=== PATIENT | female | born 1955 | race Caucasian/White ===

== ENCOUNTER 2024-08-10 12:35 | Emergency (ER) | payer MEDICARE ==
[2024-08-10 12:50] VITALS: RESP 18
--- NOTE | 2024-08-10 12:53 | ED ---
Fall HPI - General Chief Complaint: Fall Stated Complaint: Fall- R wrist injury Time Seen by Provider: 08/10/24 12:44 Source: patient, RN notes reviewed Mode of arrival: ambulatory Limitations: no limitations - History of Present Illness Initial Comments: This is a 69-year-old female who presents to the emergency department for a fall. Patient was standing in the back of a pickup truck and accidentally fell out of it, landing on the concrete. States that she hit her head and injured the right wrist. Denies any loss of consciousness. Not taking any blood thinners. There is a small laceration to the right forehead. Unsure when her last tetanus vaccine was. She is still able to move the wrist but states that it is painful. Denies sustaining any additional injuries. She took 2 extra strength Tylenol prior to arrival. MD Complaint: fall - Related Data Previous Rx's Medication Instructions Recorded HYDROcodone/APAP 7.5-325MG [[place] 1 tab PO Q6HR PRN 3 Days #12 tab 08/10/24 7.5-325] Ibuprofen [Motrin] 800 mg PO Q8H PRN #30 tab 08/10/24 Allergies Allergy/AdvReac Type Severity Reaction Status Date / Time No Known Allergies Allergy Verified 08/10/24 12:39 Review of Systems ROS Statement: Those systems with pertinent positive or pertinent negative responses have been documented in the HPI. ROS Other: All systems not noted in ROS Statement are negative. Past Medical History Past Medical History: No Reported History Past Surgical History: Breast Surgery, Orthopedic Surgery, Tonsillectomy Additional Past Surgical History / Comment(s): R mastectomy, Jaw surgery Past Psychological History: Anxiety Smoking Status: Former smoker Past Alcohol Use History: None Reported Past Drug Use History: None Reported General Exam Limitations: no limitations General appearance: alert, in no apparent distress Head exam: Present: other (3 cm laceration to the right side of the forehead. Ecchymosis and swelling to the right side of the forehead.) Eye exam: Present: normal appearance, PERRL, EOMI. Absent: scleral icterus, conjunctival injection, periorbital swelling Respiratory exam: Present: normal lung sounds bilaterally. Absent: respiratory distress, wheezes, rales, rhonchi, stridor Cardiovascular Exam: Present: regular rate, normal rhythm, normal heart sounds. Absent: systolic murmur, diastolic murmur, rubs, gallop, clicks Extremities exam: Present: other (Swelling and tenderness to the dorsal aspect of the right wrist. Range of motion limited by pain. 2+ radial pulses) Neurological exam: Present: alert, oriented X3, CN II-XII intact Psychiatric exam: Present: normal affect, normal mood Course Vital Signs 08/10/24 08/10/24 12:39 14:28 Temperature 97.5 F L 97.7 F Pulse Rate 76 74 Respiratory 18 18 Rate Blood Pressure 137/69 136/77 O2 Sat by Pulse 97 98 Oximetry Procedures - Laceration Laceration #1 Consent Obtained: verbal consent Indication: laceration Site: face Size (cm): 3 Description: linear Depth: simple, single layer Type of Sutures: other (Dermabond) - Orthopedic Splinting/Casting Injury #1 Side: right Upper Extremity Injury Location: wrist Upper Extremity Immobilizer: volar splint, fiberglass cast Medical Decision Making - Medical Decision Making This is a 69 year old female who presents to the emergency department for a fall. Was pt. sent in by a medical professional or institution? @ -No Did you speak to anyone other than the patient for history? @ -No Did you review nursing and triage notes? @ -Yes, and I agree, it is accurate with regards to the patient's symptoms. Were old charts reviewed? @ -No Differential Diagnosis? @ -Differential Diagnosis Head Injury: Contusion, hematoma, intracranial hemorrhage, skull fracture, whiplash, concussion, this is not meant to be an all-inclusive list. EKG interpreted by me (3pts min.)? @ -Not obtained X-rays interpreted by me (1pt min.)? @ -X-ray of the right wrist obtained. My interpretation identifies a distal radius fracture. CT interpreted by me (1pt min.)? @ -Computed tomography scan of the brain and c-spine obtained. My interpretation identifies no evidence of an acute intracranial hemorrhage, skull fracture, or cervical spine fracture. CT scan of the facial bones obtained. My interpretation identifies no facial fractures. U/S interpreted by me (1pt. min.)? @ -Not obtained What testing was considered but not performed? (CT, X-rays, U/S, labs)? Why? @ -None What meds were considered but not given? Why? @ -None Did you discuss the management of the patient with other professionals? @ -No Did you reconcile home meds? @ -No Was smoking cessation discussed for >3mins.? @ -No Was critical care preformed (if so, how long)? @ -No Were there social determinants of health that impacted care today? How? (Homelessness, low income, unemployed, alcoholism, drug addiction, transportation, low edu. Level, literacy, decrease access to med. care, detention, rehab)? @ -No Was there de-escalation of care discussed even if they declined? (Discuss DNR or withdrawal of care, Hospice)? @ -No What co-morbidities impacted this encounter? (DM, HTN, Smoking, COPD, CAD, Cancer, CVA, Hep., AIDS, mental health diagnosis, sleep apnea, morbid obesity)? @ -None Was patient admitted / discharged? @ -Discharged. CT scan of the brain/C-spine and facial bones obtained revealing no acute intracranial process or signs of any facial or cervical spine fractures. X-ray of the right hand and wrist demonstrates a minimally impacted, comminuted fracture of the distal radial metaphysis as well as a nondisplaced fracture involving the tip of the ulnar styloid process. Volar splint was applied. Tetanus vaccine was updated. LET was applied to the laceration on her forehead to help control the bleeding. Dermabond was then used to close the wound. Prescription for ibuprofen and [place] provided. She was also given information for follow-up with orthopedics and advised to contact them for a follow-up appointment. Patient discharged home in stable condition. Case discussed with ED attending Dr. Alvares. Return precautions reviewed in depth, the patient is instructed to return to the emergency department with any new, worsening, or concerning symptoms. Patient verbalized understanding. Undiagnosed new problem with uncertain prognosis? @ -None Drug Therapy requiring intensive monitoring for toxicity (Heparin, Nitro, Insulin, Cardizem)? @ -None Were any procedures done? @ -Laceration repair with Dermabond, right volar splint application Diagnosis/symptom? @ -Fall, right distal radius and ulnar fracture, head injury, laceration Acute, or Chronic, or Acute on Chronic? @ -Acute Uncomplicated (without systemic symptoms) or Complicated (systemic symptoms)? @ -Uncomplicated Side effects of treatment? @ -None Exacerbation, Progression, or Severe Exacerbation] @ -Not applicable Poses a threat to life or bodily function? @ -Will limit use of the right arm for the mean time. - Radiology Data Radiology results: report reviewed, image reviewed Disposition Clinical Impression: Fall, Head injury, Laceration, Closed fracture of right distal radius and ulna Disposition: HOME SELF-CARE Instructions (If sedation given, give patient instructions): Wrist Fracture in Adults (ED), Fall Prevention for Older Adults (ED), Splint Care (ED), Skin Adhesive Care (ED) Additional Instructions: Return to the emergency department with any new, worsening, or concerning symptoms. Alternate with ibuprofen and Tylenol as needed for pain relief. Take the [place] sparingly when your pain is the most severe and be aware that it may make you drowsy. Contact orthopedics as listed below this evening or tomorrow morning. Let them know that you were seen in the emergency department and found to have a fracture of your right radius and ulna. They will schedule you for a follow-up appointment. Keep the wound on your forehead dry, do not apply topical medications, and do not rub, scratch, or pick at the wound. The adhesive will naturally fall off within 5-10 days. Prescriptions: Ibuprofen [Motrin] 800 mg PO Q8H PRN #30 tab PRN Reason: Pain HYDROcodone/APAP 7.5-325MG [[place] 7.5-325] 1 tab PO Q6HR PRN 3 Days #12 tab PRN Reason: Pain Is patient prescribed a controlled substance at d/c from ED?: Yes When asked, does pt state using other controlled substances?: No If prescribed controlled substance>3 days was MAPS reviewed?: Prescribed <3 Days Referrals: Kristopher Viveros DO [Primary Care Provider] - 1-2 days Migue Vaughn MD [STAFF PHYSICIAN] - 1-2 days Time of Disposition: 14:18
[2024-08-10] MEDS: TOPICAL SKIN ADHESIVE 1 EACH AMP TOPICAL ONE (13:27)
[2024-08-10] MEDS: LIDOCAINE/EPINEPHR/TETRACAINE 5 ML BOTTLE TOPICAL ONE (13:27)
[2024-08-10] MEDS: DIPH,PERTUS(ACELL)TETVAC-LF 0.5 ML VIAL IM ONE (13:28)
--- NOTE | 2024-08-10 13:30 | CT ---
EXAMINATION TYPE: CT brain cspine wo con, CT facial bones wo con CT DLP: 1061.9 mGycm, Automated exposure control for dose reduction was used. DATE OF EXAM: 08/10/2024 1:20 PM COMPARISON: None. CLINICAL INDICATION:Female, 69 years old with history of Fall, head injury; Fall, head injury, lac ab ove rt eye. Denies LOC. TECHNIQUE: Brain: Multiple axial CT images of the brain were obtained without IV contrast. Cspine: Axial CT images from the skull base to the inferior aspect of T2 we obtained without intraven ous contrast. Coronal and sagittal reformatted images were also reviewed. Facial bones; axial CT images of the facial bones were obtained without contrast and soft tissue and bone windows. Coronal and sagittal reformatted images were also reviewed. FINDINGS: Brain: Extra-axial spaces: No abnormal extra-axial fluid collections. Ventricular system: Within normal limits Cerebral parenchyma: No acute intraparenchymal hemorrhage or mass effect. The ortiz-white junction is well differentiated. Cerebellum: Unremarkable. Mass effect: No evidence of midline shift. Intracranial vasculature: unremarkable Soft tissues: Normal. Calvarium: No depressed skull fracture. Paranasal sinuses and mastoid air cells: Clear. Visualized orbits: Orbital contents are intact. Cervical spine: Fracture: None. Osseous structures: Multilevel degenerative disc disease changes with endplate spurring and disc spac e narrowing with osteophytosis. Vertebral alignment: Within normal limits. Spinal canal/Neural Foramina: Disc bulges at C3-C4, C4-C5, C5-C6, and C6-C7 with at least mild spinal canal stenosis. Facet joint uncovertebral joint arthropathy scattered throughout the cervical spine with varying degrees of neural foraminal stenosis. Neck soft tissues: Prevertebral soft tissues are within normal limits. Other: The airway is patent. Scattered regions of air trapping within the lungs. Few punctate calcifi ed granulomas within the right upper lobe posteriorly. Right axillary surgical clips identified. Facial Bones: There is no evidence of fracture, subluxation, dislocation. Small right congregation soft tissue contusion. The orbital contents are unremarkable. Nasal septal deviation to the right. The temporal-mandibular joints appear symmetric with mild degenerative changes. The visualized portion of the paranasal sinus es appear clear. IMPRESSION: 1. No acute intracranial process. 2. No acute facial bone fracture. 3. Small right congregation soft tissue contusion. 4. No evidence of cervical spine fracture. 5. Mild to moderate multilevel degenerative disc disease. [facility], , 08/10/2024 1:28 PM
--- NOTE | 2024-08-10 13:51 | XR ---
EXAMINATION TYPE: XR wrist complete 4 views RT, XR hand complete 3 views RT DATE OF EXAM: 08/10/2024 COMPARISON: NONE HISTORY: 69-year-old female pain after falling. 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 FINDINGS: Wrist: There is a comminuted fracture of the distal radial metaphysis and epiphysis with intra-articular ext ension into the radiocarpal and distal radial ulnar joint. Fracture line seems to extend to both the radioscaphoid and radiolunate joint spaces. Bony separation of the articular surface by up to 1.5 mm. There is minimal impaction and mild dorsal angulation demonstrated. Soft tissue swelling. Subtle non displaced fracture through the tip of the ulnar styloid process. Hand: Severe degenerative change throughout the second through fifth DIP joints. Prominent subchondral cyst ic change on the middle phalangeal side of the joint third finger. Moderate change first IP joint. No additional acute fracture, subluxation, or dislocation is seen. IMPRESSION: 1. Wrist: Minimally impacted, comminuted fracture distal radial metaphysis and epiphysis. Intra-yimi cular extension into both the radiocarpal and distal radioulnar joints. Nondisplaced fracture involvi ng the tip of the ulnar styloid process. Associated soft tissue swelling. 2. Hand: Severe osteophytic change at the DIP joints of the fingers. No additional acute osseous abno rmality seen. [facility], , 08/10/2024 1:49 PM
[2024-08-10 14:31] VITALS: BP 136/77; PULSE 74; TEMP 97.7
== END 2024-08-10 14:36 | disposition home or self-care (01) ==
LOC: EC 12:35
CPT/HCPCS: 12002; 29125; 70450; 70486; 72125; 90715; 99284

== ENCOUNTER → 2024-08-15 | Outpatient (CLI) | payer MEDICARE ==
--- NOTE | 2024-08-15 13:50 | CT ---
EXAMINATION TYPE: CT wrist RT wo con CT DLP: 125.1 mGycm, Automated exposure control for dose reduction was used. DATE OF EXAM: 08/15/2024 1:37 PM COMPARISON: Right hand and wrist radiographs 08/10/2024 CLINICAL INDICATION:Female, 69 years old with history of M25.531 PAIN RIGHT WRIST S52.571A; PHH, rt w rist fracture, pain TECHNIQUE: Axial images were obtained of the right wrist without the use of IV contrast. Additional coronal and sagittal reformatted images and soft tissue and bone window were obtained for review. FINDINGS: Demonstration of comminuted fracture distal radial metaphysis and epiphysis with intraartic ular extension into the radiocarpal and distal radioulnar joints. There is again mild impaction with shortening of 3 mm and mild dorsal angulation. Overlying soft tissue swelling. Subtle nondisplaced fr acture involving the tip of the ulnar styloid process. No radiopaque foreign body. No dislocation. IMPRESSION: 1. Redemonstration of comminuted mildly impacted distal radial fracture with intra-articular extensi on. 2. Redemonstration of nondisplaced fracture along the tip of the ulnar styloid process. [facility], , 08/15/2024 1:48 PM
== END | disposition home or self-care (01) ==
LOC: RADCTMAIN 13:16
PROVIDERS: ATTEND Orthopaedic Surgery
DX: S52.571A Other intraarticular fracture of lower end of right radius, initial encounter for closed fracture (principal)